=== PATIENT | female | born 1940 | race Caucasian/White ===

== ENCOUNTER 2019-12-16 15:38 | Emergency (ER) | payer MEDICARE, BC ==
[2019-12-16] MEDS ORDERED: Acetaminophen 325 MG Tab PO ONE (16:22)
[2019-12-16 16:48] LABS: BLOOD UREA NITROGEN,BUN 11 mg/dL (7.0-18.0); CARBON DIOXIDE,CO2 28.6 mmol/L (21.0-32.0); CHLORIDE,CL 109 mmol/L (98-107); GLUCOSE RANDOM 116 mg/dL (74-106); POTASSIUM,K 3.5 mmol/L (3.5-5.1); SODIUM,NA 146 mmol/L (136-145)
--- NOTE | 2019-12-16 17:08 | EDM.PDOC ---
ED HPI GENERAL MEDICAL PROBLEM - General Chief Complaint: General Stated Complaint: JAW PAIN Time Seen by Provider: 12/16/19 15:48 - History of Present Illness INITIAL COMMENTS - FREE TEXT/NARRATIVE: 79-year-old female history of hypertension presenting to ER for left-sided neck pain. The pain started spontaneously while watching TV. Sometimes radiated behind the ear. She has never had this type of pain before. The pain does not worsen with movement or palpation. She denies any weakness numbness headaches or also denies vision changes. Denies chest pain denies shortness of breath. Has dentures has not noticed any differences in her gums. Denies fever denies any trauma denies any other associated symptoms. Pain started 1 hour prior to arrival to emergency room. left side of jaw Pain Score (Numeric/FACES): 5 - Related Data Allergies Allergy/AdvReac Type Severity Reaction Status Date / Time Sulfa (Sulfonamide Allergy Cannot Verified 09/17/16 17:27 Antibiotics) Remember Home Meds: Home Meds Metoprolol Succinate [Toprol XL] 50 mg PO DAILY 09/17/16 [History] Past Medical History HEENT History: Reports: Impaired Vision Cardiovascular History: Reports: Hypertension [employer] History: Reports: - Infectious Disease History Infectious Disease History: Reports: Chicken Pox, Shingles - Past Surgical History HEENT Surgical History: Reports: Adenoidectomy, Tonsillectomy GI Surgical History: Reports: Appendectomy Musculoskeletal Surgical History: Reports: Hip Replacement Other Musculoskeletal Surgeries/Procedures:: right hip surgery in 2013 Social & Family History - Family History Family Medical History: Noncontributory - Tobacco Use Smoking Status *Q: Former Smoker Used Tobacco, but Quit: Yes Month/Year Tobacco Last Used: 10/1999 - Recreational Drug Use Recreational Drug Use: No ED ROS GENERAL - Review of Systems Review Of Systems: See Below Constitutional: Reports: No Symptoms HEENT: Reports: Other (neck pain) Respiratory: Reports: No Symptoms Cardiovascular: Reports: No Symptoms Endocrine: Reports: No Symptoms GI/Abdominal: Reports: No Symptoms : Reports: No Symptoms Musculoskeletal: Reports: Neck Pain Skin: Reports: No Symptoms Neurological: Reports: No Symptoms Psychiatric: Reports: No Symptoms Hematologic/Lymphatic: Reports: No Symptoms ED EXAM, GENERAL - Physical Exam Exam: See Below Exam Limited By: No Limitations General Appearance: Alert, WD/WN, No Apparent Distress Eye Exam: Bilateral Eye: EOMI, Normal Inspection, PERRL Ears: Normal External Exam, Normal Canal, Normal TMs Nose: Normal Inspection Head: Atraumatic, Normocephalic Neck: Normal Inspection, Supple, Non-Tender, Full Range of Motion. No: Carotid Bruit Respiratory/Chest: No Respiratory Distress, Lungs Clear, Normal Breath Sounds Cardiovascular: Normal Peripheral Pulses, Regular Rate, Rhythm GI/Abdominal: Soft, Non-Tender (Female) Exam: Deferred Rectal (Female) Exam: Deferred Back Exam: Full Range of Motion Neurological: Alert, Oriented, CN II-XII Intact, Normal Cognition, Normal Gait, No Motor/Sensory Deficits Course - Vital Signs Last Recorded V/S: Last Vital Signs Temp 97.7 F 12/16/19 15:52 Pulse 70 12/16/19 18:20 Resp 16 12/16/19 18:20 BP 156/84 H 12/16/19 18:20 Pulse Ox 95 12/16/19 18:20 - Orders/Labs/Meds Labs: Laboratory Tests 12/16/19 12/16/19 12/16/19 Range/Units 16:18 16:18 18:35 WBC 4.72 (4.0-11.0) K/uL RBC 4.74 (4.30-5.90) M/uL Hgb 13.6 (12.0-16.0) g/dL Hct 42.4 (36.0-46.0) % MCV 89.5 (80.0-98.0) fL MCH 28.7 (27.0-32.0) pg MCHC 32.1 (31.0-37.0) g/dL RDW Std Deviation 43.2 (28.0-62.0) fl RDW Coeff of [place] 13 (11.0-15.0) % Plt Count 163 (150-400) K/uL MPV 9.10 (7.40-12.00) fL Neut % (Auto) 72.0 (48.0-80.0) % Lymph % (Auto) 21.2 (16.0-40.0) % [place] % (Auto) 6.4 (0.0-15.0) % Eos % (Auto) 0.0 (0.0-7.0) % Baso % (Auto) 0.4 (0.0-1.5) % Neut # (Auto) 3.4 (1.4-5.7) K/uL Lymph # (Auto) 1.0 (0.6-2.4) K/uL [place] # (Auto) 0.3 (0.0-0.8) K/uL Eos # (Auto) 0.0 (0.0-0.7) K/uL Baso # (Auto) 0.0 (0.0-0.1) K/uL Nucleated RBC % 0.0 /100WBC Nucleated RBCs # 0 K/uL Sodium 146 H (136-145) mmol/L Potassium 3.5 (3.5-5.1) mmol/L Chloride 109 H (98-107) mmol/L Carbon Dioxide 28.6 (21.0-32.0) mmol/L BUN 11 (7.0-18.0) mg/dL Creatinine 0.8 (0.6-1.0) mg/dL Est Cr Clr Drug Dosing 51.63 mL/min Estimated GFR (MDRD) > 60.0 ml/min Glucose 116 H (74-106) mg/dL Calcium 8.4 L (8.5-10.1) mg/dL Total Bilirubin 0.5 (0.2-1.0) mg/dL AST 20 (15-37) IU/L ALT 20 (14-63) IU/L Alkaline Phosphatase 96 (46-116) U/L Troponin I < 0.050 < 0.050 (0.000-0.056) ng/mL Total Protein 6.6 (6.4-8.2) g/dL Albumin 3.3 L (3.4-5.0) g/dL Globulin 3.3 (2.6-4.0) g/dL Albumin/Globulin Ratio 1.0 (0.9-1.6) Meds: Medications Discontinued Medications Generic Name Dose Route Start Last Admin Trade Name Freq PRN Reason Stop Dose Admin Acetaminophen 650 mg 12/16/19 16:22 12/16/19 16:35 Tylenol PO 12/16/19 16:23 650 mg NOW ONE Administration Iopamidol 100 ml 12/16/19 17:47 12/16/19 17:48 Isovue Multipack-370 (76%) IVPUSH 12/16/19 17:48 100 ml ONETIME ONE Administration - Re-Assessments/Exams Free Text/Narrative Re-Assessment/Exam: 12/16/19 19:42 the patient presneted with left sided jaw pain/left neck pain, did not radiate anywhere. Daughter was concerned for carotid pathology, she had a normal neurological exam. We did a CTA of the neck that ruled out carotid pathology. The story was extremely atypical for ACS, on arrival en ecg was done from triage which showed a LBBB, no old for comparison, trop x2 was negative and patient was given cards referral for the incidental abnormal ecg. I explaied to her this abnormal finding and discussed with her the signs and symptoms associated with ACS. return precautions were discussed. referral to cards this week was arranged. Pain resolved prior to discharge, on re-assesment patient told me she thinks its related to her dentures as she had similar pain like this before but never lasted this long... Departure - Departure Time of Disposition: 19:27 Disposition: Home, Self-Care 01 Clinical Impression: Jaw pain, non-TMJ - Discharge Information Instructions: Musculoskeletal Pain Referrals: Vee Stone [employer]CHNICIAN [Primary Care Provider] - Forms: ED Department Discharge Additional Instructions: Return to ED if you develop chest pain, sob, weakness, numbness, vision changes or any concerns. Your ecg had an incidental left bundle branch block, cardiology referral will be made, expect a phone call tomorrow to address this incidental finding. The following information is given to patients seen in the emergency department who are being discharged to home. This information is to outline your options for follow-up care. We provide all patients seen in our emergency department with a follow-up referral. The need for follow-up, as well as the timing and circumstances, are variable depending upon the specifics of your emergency department visit. If you don't have a primary care physician on staff, we will provide you with a referral. We always advise you to contact your personal physician following an emergency department visit to inform them of the circumstance of the visit and for follow-up with them and/or the need for any referrals to a consulting specialist. The emergency department will also refer you to a specialist when appropriate. This referral assures that you have the opportunity for follow-up care with a specialist. All of these measure are taken in an effort to provide you with optimal care, which includes your follow-up. Under all circumstances we always encourage you to contact your private physician who remains a resource for coordinating your care. When calling for follow-up care, please make the office aware that this follow-up is from your recent emergency room visit. If for any reason you are refused follow-up, please contact the Emergency Department at and asked to speak to the emergency department charge nurse. Sepsis Event Note - Evaluation Sepsis Screening Result: No Definite Risk - Focused Exam Vital Signs: Vital Signs Temp Pulse Resp BP Pulse Ox 12/16/19 18:20 70 16 156/84 H 95 12/16/19 17:10 72 16 193/76 H 97 12/16/19 16:44 73 18 180/71 H 94 L 12/16/19 15:52 97.7 F 90 18 195/90 H 94 L Date Exam was Performed: 12/16/19 Time Exam was Performed: 19:41
[2019-12-16] MEDS ORDERED: Iopamidol 755 MG/ML 200 ML Multipack Bottle IVPUSH ONE (17:47)
--- NOTE | 2019-12-16 18:15 | CT ---
CT angiogram of neck Technique: Multiple axial sections through the neck were obtained. Intravenous contrast was utilized. Study has been performed as a CT neck angiogram exam. Multiple MIP images were obtained. Findings: Common carotid arteries on both sides are patent. External and internal carotid arteries are patent. Vertebral arteries are also patent. Right vertebral artery slightly dominant over the left vertebral artery which is an incidental finding. Basilar artery is patent into the proximal posterior cerebral arteries are seen. Carotid arteries are patent into the proximal anterior and middle cerebral arteries. Lung window settings shows severe emphysematous change within the lungs. Impression: 1. No focal stenosis, occlusion or dissection is seen within the CCA, ICA or vertebral arteries. 2. Severe emphysematous change is noted within both lungs. Diagnostic code #2 This report was dictated in [place] Standard Time
[2019-12-16 19:57] VITALS: BP 170/71; PULSE 72
== END 2019-12-16 19:57 | disposition home or self-care (01) ==
LOC: MW.ED 15:38
DX: R68.84 Jaw pain (principal); I10 Essential (primary) hypertension; Z88.2 Allergy status to sulfonamides; Z87.891 Personal history of nicotine dependence
CPT/HCPCS: 36415; 70498; 80053; 84484; 85025; 93005; 99284; A9270; Q9967; 99283

== ENCOUNTER 2022-05-13 19:24 | Emergency (ER) | payer MEDICARE, BC ==
[2022-05-13 21:35] LABS: CARBON DIOXIDE,CO2 25.9 mmol/L (21.0-32.0)
[2022-05-13 22:35] VITALS: BP 146/84; PULSE 74
== END 2022-05-13 22:35 | disposition home or self-care (01) ==
LOC: MW.ED 19:24
DX: R10.9 Unspecified abdominal pain (principal); I10 Essential (primary) hypertension; Z88.2 Allergy status to sulfonamides; Z20.822 Contact with and (suspected) exposure to COVID-19
CPT/HCPCS: 36415; 71045; 80053; 81001; 83690; 83735; 84484; 85025; 99284; U0002; 99283

== ENCOUNTER 2022-08-10 17:22 | Emergency (ER) | payer MEDICARE, BC ==
[2022-08-10] MEDS ORDERED: Sodium Chloride 0.9% 10 ML Syringe FLUSH PRN (18:01)
[2022-08-10] MEDS ORDERED: Sodium Chloride 0.9% 2.5 ML Syringe FLUSH PRN (18:01)
[2022-08-10] MEDS ORDERED: Sodium Chloride 0.9% 1,000 ML IV ONE (18:04)
[2022-08-10 19:23] LABS: CARBON DIOXIDE,CO2 28.1 mmol/L (21.0-32.0); POTASSIUM,K 4.1 mmol/L (3.5-5.1)
[2022-08-10] MEDS ORDERED: Alum Hydro/Mag Hydro/Simeth XS 15 ML, Metoclopramide 5 MG, Lidocaine 2% 5 ML PO ONE ×3 (20:47)
[2022-08-10] MEDS ORDERED: Nitrofurantoin Monohydrate/Macrocrystalline 100 MG Cap PO ONE (21:22)
[2022-08-10] MEDS ORDERED: Iopamidol 755 MG/ML 500 ML Multipack Bottle IVPUSH ONE (21:36)
[2022-08-10 22:43] VITALS: BP 170/103; PULSE 97
== END 2022-08-10 21:45 | disposition home or self-care (01) ==
LOC: MW.ED 17:22
DX: K56.41 Fecal impaction (principal); N30.00 Acute cystitis without hematuria; I10 Essential (primary) hypertension; Z88.2 Allergy status to sulfonamides; Z79.899 Other long term (current) drug therapy; Z20.822 Contact with and (suspected) exposure to COVID-19
CPT/HCPCS: 36415; 71045; 74177; 80053; 81001; 83880; 84484; 85025; 87086; 93005; 96360; 96361; 99285; A9270; J3490; J7030; Q9967; U0002; 93010; 99284

== ENCOUNTER 2022-09-27 18:45 | Inpatient (IN) | payer MEDICARE, BC ==
[2022-09-27] MEDS ORDERED: Sodium Chloride 0.9% 10 ML Syringe FLUSH PRN (19:19)
[2022-09-27] MEDS ORDERED: Sodium Chloride 0.9% 2.5 ML Syringe FLUSH PRN (19:19)
[2022-09-27] MEDS ORDERED: Albuterol/Ipratropium 3.0-0.5 MG/3 ML Neb Soln NEB ONE (19:57)
[2022-09-27 20:16] LABS: CARBON DIOXIDE,CO2 33.5 mmol/L (21.0-32.0); POTASSIUM,K 2.5 mmol/L (3.5-5.1)
[2022-09-27 20:47] LABS: CORONAVIRUS COVID-19 NAA NEGATIVE (NEGATIVE); INFLUENZA A NAA NEGATIVE (NEGATIVE); INFLUENZA B NAA NEGATIVE (NEGATIVE)
[2022-09-27] MEDS ORDERED: Iopamidol 755 MG/ML 500 ML Multipack Bottle IVPUSH STA (22:32)
[2022-09-27] MEDS ORDERED: Potassium Chloride 10% 20 MEQ/15 ML Soln 30 ML UD Cup PO ONE (22:38)
[2022-09-27] MEDS ORDERED: Heparin Sodium 5,000 Units/ML Vial IVPUSH ONE (23:30)
[2022-09-27] MEDS: Heparin Sodium/0.45% NaCl 500 ML IV SCH (23:56)
[2022-09-28] MEDS ORDERED: Potassium Chloride 20 MEQ Tab.ER PO ONE (01:36)
[2022-09-28 04:54] LABS: CARBON DIOXIDE,CO2 32.1 mmol/L (21.0-32.0); POTASSIUM,K 3.5 mmol/L (3.5-5.1)
[2022-09-28] MEDS ORDERED: Acetaminophen 325 MG Tab PO PRN (07:52)
[2022-09-28] MEDS ORDERED: Polyethylene Glycol 3350 Powder 17 GM Packet PO PRN (07:53)
[2022-09-28] MEDS ORDERED: Ondansetron 4 MG/2 ML SDV IVPUSH PRN (07:53)
[2022-09-28] MEDS: Heparin Sodium/0.45% NaCl 500 ML IV SCH (10:43)
[2022-09-28] MEDS: Metoprolol Succinate 50 MG Tab.ER PO SCH (11:29)
[2022-09-28] MEDS: Losartan 50 MG Tab PO SCH ×2 (11:30→16:55)
[2022-09-28] MEDS ORDERED: Heparin Sodium 5,000 Units/ML Vial IVPUSH ONE (20:53)
[2022-09-29 08:14] LABS: CARBON DIOXIDE,CO2 32.1 mmol/L (21.0-32.0); POTASSIUM,K 3.9 mmol/L (3.5-5.1)
[2022-09-29] MEDS: Metoprolol Succinate 50 MG Tab.ER PO SCH (08:41)
[2022-09-29] MEDS: Losartan 50 MG Tab PO SCH (08:42)
[2022-09-29] MEDS: Heparin Sodium/0.45% NaCl 500 ML IV SCH (08:50)
[2022-09-29] MEDS ORDERED: cloNIDine 0.1 MG Tab PO ONE (16:30)
[2022-09-30] MEDS: Albuterol/Ipratropium 3.0-0.5 MG/3 ML Neb Soln NEB PRN (00:20)
[2022-09-30 04:44] LABS: CARBON DIOXIDE,CO2 32.3 mmol/L (21.0-32.0); POTASSIUM,K 3.7 mmol/L (3.5-5.1)
[2022-09-30] MEDS ORDERED: Heparin Sodium 5,000 Units/ML Vial IVPUSH PRN (08:18)
[2022-09-30] MEDS ORDERED: Sodium Chloride 0.9% 10 ML Syringe FLUSH PRN (08:18)
[2022-09-30] MEDS ORDERED: Sodium Chloride 0.9% 2.5 ML Syringe FLUSH PRN (08:18)
[2022-09-30] MEDS ORDERED: Heparin Sodium/0.45% NaCl 500 ML IV SCH (08:30)
[2022-09-30] MEDS: Metoprolol Succinate 50 MG Tab.ER PO SCH (08:33)
[2022-09-30] MEDS: Losartan 50 MG Tab PO SCH (08:35)
[2022-09-30] MEDS ORDERED: LORazepam 2 MG/ML SDV IVPUSH ONE (20:07)
[2022-10-01] MEDS ORDERED: Labetalol 100 MG/20 ML MDV IVPUSH ONE (06:44)
[2022-10-01] MEDS: Albuterol/Ipratropium 3.0-0.5 MG/3 ML Neb Soln NEB PRN (07:39)
[2022-10-01] MEDS: Losartan 50 MG Tab PO SCH (07:59)
[2022-10-01] MEDS: Metoprolol Succinate 50 MG Tab.ER PO SCH (07:59)
[2022-10-01] MEDS ORDERED: Morphine 4 MG/ML Syringe IVPUSH PRN (08:32)
[2022-10-01] MEDS ORDERED: Atropine 1% Ophth Soln 5 ML BOTTLE SL PRN (08:36)
[2022-10-01 08:38] LABS: CARBON DIOXIDE,CO2 31.7 mmol/L (21.0-32.0); POTASSIUM,K 3.4 mmol/L (3.5-5.1)
[2022-10-01] MEDS: Morphine 4 MG/ML Syringe IVPUSH PRN ×3 (09:04→20:02)
[2022-10-02] MEDS: LORazepam 2 MG/ML SDV IVPUSH PRN ×3 (07:14→23:28)
[2022-10-02 09:05] VITALS: BP 171/74; PULSE 80
[2022-10-02] MEDS: Morphine 4 MG/ML Syringe IVPUSH PRN ×6 (09:44→21:19)
[2022-10-02] MEDS: Metoprolol Succinate 50 MG Tab.ER PO SCH (09:50)
[2022-10-02] MEDS ORDERED: Scopolamine 1.5 MG Transdermal Patch TRDERM PRN (12:51)
[2022-10-03] MEDS: Morphine 4 MG/ML Syringe IVPUSH PRN ×4 (00:42→09:34)
[2022-10-03] MEDS: LORazepam 2 MG/ML SDV IVPUSH PRN (06:28)
[2022-10-03] MEDS: Metoprolol Succinate 50 MG Tab.ER PO SCH (09:11)
== END 2022-10-03 12:02 | disposition other institution (70) | DRG 175 ==
LOC: MW.ED 18:45 → MW.MS 09-28 00:17
PROVIDERS: ADMIT Internal Medicine; ATTEND Internal Medicine
DX: I26.99 Other pulmonary embolism without acute cor pulmonale (principal); J90 Pleural effusion, not elsewhere classified; J96.91 Respiratory failure, unspecified with hypoxia; J96.01 Acute respiratory failure with hypoxia; C34.92 Malignant neoplasm of unspecified part of left bronchus or lung; J91.8 Pleural effusion in other conditions classified elsewhere; Z96.641 Presence of right artificial hip joint; H54.7 Unspecified visual loss; Z66 Do not resuscitate; R91.8 Other nonspecific abnormal finding of lung field; Z20.822 Contact with and (suspected) exposure to COVID-19; J43.9 Emphysema, unspecified; I10 Essential (primary) hypertension; E87.6 Hypokalemia; Z51.5 Encounter for palliative care; Z88.2 Allergy status to sulfonamides; Z79.899 Other long term (current) drug therapy; Z87.891 Personal history of nicotine dependence; Z90.49 Acquired absence of other specified parts of digestive tract
CPT/HCPCS: 0240U; 36415; 36600; 71045; 71275; 80048; 80053; 81001; 82803; 83605; 83735; 83880; 84484; 85025; 85379; 85610; 85730; 87040; 93005; 93306; 94640; 96365; 97161; 97530; 99285; A9270-GY; J1644; J2060; J2270; J3490; J7620-GY; Q9967